=== PATIENT | female | born 1970 | race Caucasian/White ===

== ENCOUNTER 2016-08-07 15:28 | Emergency (ER) | payer BC ==
[~2016-08-07 15:28] MED LIST: HYDR-79 PO
[2016-08-07 16:05] VITALS: BP 130/83
[2016-08-07 16:17] LABS: INFLUENZA A PATIENT NEGATIVE (NEGATIVE); INFLUENZA B PATIENT NEGATIVE (NEGATIVE)
--- NOTE | 2016-08-07 16:42 | ED.ADGEN ---
Past History Past Medical History: No Pertinent History Past Surgical History: No Surgical History Alcohol Use: None Drug Use: None Adult General Chief Complaint Chief Complaint Multiple medical complaints HPI HPI Patient is a 46-year-old female who presents 4 days post right lower posterior molar extraction with generalized malaise, weakness, nausea and intermittent hot flashes. Patient also reports sore throat. She denies fever chills sweats. She denies increased dental pain or swelling. Patient's currently prescribed Cleocin which she is taking. Patient discontinued hydrocodone after one day due to lack of pain. No other acute symptoms. Review of Systems Review of Systems Review of symptoms as per history of present illness. All other review symptoms are negative. Allergies Allergies Allergies Coded Allergies Type Severity Reaction Last Updated Verified Sulfa (Sulfonamide Antibiotics) Allergy Unknown 02/28/16 Yes Physical Exam Physical Exam Constitutional: Well developed, well nourished, no acute distress, non-toxic appearance. HENT: Normocephalic, atraumatic, bilateral external ears normal, oropharynx moist, right lower posterior MTP third molar socket with minimal. No swelling redness appreciated. Eyes: PERRLA, EOMI, conjunctiva normal. Neck: Normal range of motion, no tenderness, supple, no stridor. Cardiovascular:Heart rate regular rhythm, no murmur. Lungs & Thorax: Bilateral breath sounds clear to auscultation. Abdomen: Bowel sounds normal, soft, no tenderness. Skin: Warm, dry, no erythema, no rash. Back: No tenderness, no CVA tenderness. Extremities: No tenderness. Neurologic: Alert and oriented X 3, normal motor function, normal sensory function, no focal deficits noted. Psychologic: Affect normal, judgement normal, mood normal. Current Patient Data Vital Signs Vital Signs Date Time Temp Pulse Resp B/P Pulse Ox O2 Delivery O2 Flow Rate FiO2 08/07/16 16:05 97.5 75 16 98 Room Air Lab Results Laboratory Tests Test 08/07/16 15:45 Influenza Type A (Rapid) Negative (NEGATIVE) Influenza Type B (Rapid) Negative (NEGATIVE) EKG EKG [] Radiology/Procedures Radiology/Procedures [] Impressions: Nondescript symptoms with normal vital signs Course & Med Decision Making Course & Med Decision Making Pertinent Labs and Imaging studies reviewed. (See chart for details) [Discussed with patient possible viral syndrome, versus drug reaction, versus premenopausal symptoms. Went supportive care with PCP follow-up. Patient left prior to discharge instructions and prescription.] Final Impression Final Impression [1. malaise and fatigue 2. nausea] Problems: Toni Disclaimer Toni Disclaimer This electronic medical record was generated, in whole or in part, using a voice recognition dictation system. LARS GARCIA DO Aug 07, 2016 16:41
== END 2016-08-07 16:41 | disposition home or self-care (01) ==
LOC: ER 15:28
DX: R53.81 Other malaise (principal); R53.83 Other fatigue; R11.0 Nausea; J02.9 Acute pharyngitis, unspecified; R53.1 Weakness; Z88.2 Allergy status to sulfonamides
CPT/HCPCS: 87804; 99284

== ENCOUNTER → 2016-08-27 | Outpatient (CLI) | payer BC ==
[2016-08-07 16:05] VITALS: BP 130/83
== END | disposition home or self-care (01) ==
LOC: MAMMO 07:58
PROVIDERS: ATTEND General Practice
DX: Z12.31 Encounter for screening mammogram for malignant neoplasm of breast (principal); L03.317 Cellulitis of buttock
CPT/HCPCS: G0202; 77067

== ENCOUNTER 2016-10-06 20:01 | Emergency (ER) | payer BC ==
[~2016-10-06] VITALS: Ht 167.6 cm; Wt 65.8 kg
[2016-10-06 20:10] VITALS: BP 113/79
--- NOTE | 2016-10-06 20:24 | PHYS DOC ---
Past History Past Medical History: No Pertinent History Past Surgical History: No Surgical History Smoking: Cigarettes Alcohol Use: None Drug Use: None, Methamphetamine Adult General Chief Complaint Chief Complaint: ABSCESS HPI HPI Patient is a 46 year old female who presents with redness and swelling to left arm. On Tuesday she "shot up meth in that arm and I missed." She developed increasing pain and swelling to the area. No streaking up the arm. No fever. No difficulty moving the arm or hand. Review of Systems Review of Systems Constitutional: Denies fever or chills Musculoskeletal: Denies back pain or joint pain. No loss of ROM. Integument: swelling and redness localized to left forearm. Neurologic: Denies headache, focal weakness or sensory changes Allergies Allergies Allergies Coded Allergies Type Severity Reaction Last Updated Verified Sulfa (Sulfonamide Antibiotics) Allergy Unknown 02/28/16 Yes Physical Exam Physical Exam Constitutional: Thin female in poor nutrition status HENT: Normocephalic, atraumatic, bilateral external ears normal, oropharynx moist, no oral exudates, nose normal. Cardiovascular:Heart rate regular rhythm, no murmur Lungs & Thorax: Bilateral breath sounds clear to auscultation Skin: left forearm with redness Extremities: Left forearm: , no cyanosis, ROM intact, no edema. No compartment syndrome; forearm soft. NVI distally. No lymphangitis. Localized area (4 cm) of redness with swelling on volar aspect of mid forearm. Non fluctuant. Neurologic: Alert and oriented X 3, normal motor function, normal sensory function, no focal deficits noted. Psychologic: Affect normal, judgement normal, mood normal. Current Patient Data Vital Signs BP 113/79, P 89, T 97.6, sat 99% Radiology/Procedures Radiology/Procedures Xray with soft tissue swelling but no gas by my interpretation Course & Med Decision Making Course & Med Decision Making Pertinent Labs and Imaging studies reviewed. (See chart for details) Xray ordered to r/o retained foreign body or subcut gas. Rocephin IM here along with Clindamycin and doxycyline po. She will need to continue both po meds starting in the am. Warm compresses. Not ready to I&D yet but informed patient that she may very well worsen and require hospitalization and or debridement. She needs to monitor this closely; hoh it with a sharpie to monitor for spread. Toni Disclaestiven Muñoz Disclaimer This chart was dictated in whole or in part using Voice Recognition software in a busy, high-work load, and often noisy Emergency Department environment. It may contain unintended and wholly unrecognized errors or omissions. Departure Departure: Impression: Primary Impression: Cellulitis of forearm, left Additional Impressions: IVDU (intravenous drug user) Methamphetamine use Disposition: HOME, SELF-CARE Condition: STABLE Referrals: ITALIA GREEN DO (PCP) Scripts Tramadol Hcl/Acetaminophen (TRAMADOL-ACETAMINOPHN 37.5-325) 1 Each Tablet 1 TAB PO Q4-6HRS, #20 TAB Prov: BRIANA FINN MD 10/06/16 Doxycycline Hyclate (DOXYCYCLINE HYCLATE) 100 Mg Tablet.dr 1 TAB PO BID, #14 TAB Prov: BRIANA FINN MD 10/06/16 Clindamycin Hcl (CLINDAMYCIN HCL) 300 Mg Capsule 1 CAP PO TID, #21 CAP Prov: BRIANA FINN MD 10/06/16 Problem Qualifiers BRIANA FINN MD October 06, 2016 20:24
[2016-10-06] MEDS ORDERED: DOXY100T9 PO (20:29)
[2016-10-06] MEDS ORDERED: CLIN300C8 PO (20:29)
[2016-10-06] MEDS ORDERED: TRAM1TAB4 PO (20:32)
[2016-10-06] MEDS ORDERED: DOXYCYCLINE HYCLATE 100 MG TABLET PO ONE (20:45)
[2016-10-06] MEDS ORDERED: cefTRIAXone IM 1 GM VIAL IM ONE (20:45)
[2016-10-06] MEDS ORDERED: CLINDAMYCIN HCL 150 MG CAPSULE PO ONE (20:45)
[2016-10-06] MEDS ORDERED: DIPHTH,PERTUSS(ACELL),TET TOX 0.5 ML DISP.SYRIN. VAX IM ONE (21:00)
--- NOTE | 2016-10-07 07:36 | RAD ---
Left forearm, 2 views, 10/06/2016: History: Arm swelling. Rule out foreign body No fracture or destructive bony lesion is seen. There is streaky edema in the soft tissues of the proximal forearm. No radiopaque foreign body is evident. IMPRESSION: No significant bony abnormality is detected.
== END 2016-10-06 21:24 | disposition home or self-care (01) ==
LOC: ER 20:01
DX: L03.114 Cellulitis of left upper limb (principal); F15.10 Other stimulant abuse, uncomplicated; F19.10 Other psychoactive substance abuse, uncomplicated; F17.210 Nicotine dependence, cigarettes, uncomplicated; Z88.2 Allergy status to sulfonamides
CPT/HCPCS: 73090; 90471; 90715; 96372; 99284; J0696

== ENCOUNTER 2018-08-25 00:38 | Emergency (ER) | payer BC, OTHER ==
[~2018-08-25] VITALS: Ht 167.6 cm; Wt 76.2 kg
[~2018-08-25 00:38] MED LIST changes: +CLIN300C8 PO; +DOXY100T9 PO; +HYDR-1179 PO; -HYDR-79 PO; +TRAM1TAB4 PO
[2018-08-25] MEDS ORDERED: IV NORMAL SALINE 1,000ML 1,000 ML IV SCH (01:15)
[2018-08-25] MEDS ORDERED: ONDANSETRON PF 4 MG/2 ML VIAL. IV ONE (01:30)
[2018-08-25 02:04] LABS: BARBITURATES NEG (NEG); BENZODIAZEPINES NEG (NEG); CANNABINOIDS NEG (NEG); COCAINE NEG (NEG); METHADONE NEG (NEG); OPIATES NEG (NEG); PHENCYCLIDINE NEG (NEG)
[2018-08-25 02:05] LABS: BILIRUBIN,URINE NEG (NEG); CLARITY,URINE CLEAR; COLOR,URINE YELLOW; GLUCOSE,URINE NEG (NEG); NITRITE,URINE NEG (NEG); UROBILINOGEN,URINE 0.2 mg/dL (0.2 mg/dL)
[2018-08-25 02:06] LABS: AMPHETAMINE/METHAMPHETAMINE POS (NEG); BACTERIA,URINE 0 /HPF (0-FEW); RBC,URINE RARE /HPF (0-2); SQUAMOUS EPITHELIAL CELL,UR FEW /LPF; WBC,URINE OCC /HPF (0-4)
[2018-08-25 02:21] LABS: BASO # 0.1 x10^3/uL (0.0-0.2); BASO % 1 % (0-3); EOS # 0.1 x10^3/uL (0.0-0.7); EOS % 1 % (0-3); HEMATOCRIT 37.9 % (36.0-47.0); HEMOGLOBIN 12.8 g/dL (12.0-15.5); LYMPH # 1.7 x10^3/uL (1.0-4.8); LYMPH % 31 % (24-48); MEAN CORPUSCULAR HEMOGLOBIN 31 pg (25-35); MEAN CORPUSCULAR HGB CONC 34 g/dL (31-37); MEAN CORPUSCULAR VOLUME 93 fL (79-100); MONO # 0.5 x10^3/uL (0.0-1.1); MONO % 9 % (0-9); NEUT # 3.3 x10^3uL (1.8-7.7); NEUT % 59 % (31-73); PLATELET COUNT 245 x10^3/uL (140-400); RED BLOOD COUNT 4.09 x10^6/uL (3.50-5.40); RED CELL DISTRIBUTION WIDTH 13.1 % (11.5-14.5); WHITE BLOOD COUNT 5.6 x10^3/uL (4.0-11.0)
[2018-08-25 02:32] LABS: ALBUMIN 3.3 g/dL (3.4-5.0); ALBUMIN/GLOBULIN RATIO 0.9 (1.0-1.7); CALCIUM 8.5 mg/dL (8.5-10.1); CREATININE 0.7 mg/dL (0.6-1.0); GFR 89.3; TOTAL BILIRUBIN 0.3 mg/dL (0.2-1.0)
[2018-08-25 02:35] LABS: POTASSIUM 4.3 mmol/L (3.5-5.1)
[2018-08-25 03:03] VITALS: BP 106/65
[2018-08-25] MEDS ORDERED: ONDA4TAB7 PO (03:13)
--- NOTE | 2018-08-25 03:13 | PHYS DOC ---
Past History Past Medical History: Anxiety, Hypothyroid, Other Past Surgical History: Tubal ligation Smoking: Cigarettes Alcohol Use: Occasionally Drug Use: Benzodiazepine, Methamphetamine Adult General Chief Complaint Chief Complaint: DRUG ABUSE HPI HPI Patient is a 48-year-old female who presents with report that she was just diagnosed with pancreatitis this morning over at [facility]. Patient states that they had wanted to admit her there but she left because [facility] was not an in network facility. Patient's case was discussed with staff at [facility] and patient had reportedly stated that she was going to go out and talk to a friend but then eloped from hospital. Patient does admit to methamphetamine abuse. She states that she is not sure why she develops the pancreatitis. She rates pain as being moderate and admits to nausea and vomiting. Review of Systems Review of Systems Constitutional: Denies fever or chills [] Respiratory: Denies cough or shortness of breath [] Cardiovascular: No additional information not addressed in HPI [] GI: Admits to abdominal pain with nausea and vomiting. Denies diarrhea [] Integument: Denies rash or skin lesions [] Neurologic: Denies headache, focal weakness or sensory changes [] All other systems were reviewed and found to be within normal limits, except as documented in this note. Current Medications Current Medications Current Medications Medications (Trade) Dose Ordered Sig/Sials Start Time Stop Time Status Last Admin Dose Admin Ondansetron HCl (Zofran) 4 mg 1X ONCE 08/25/18 01:30 08/25/18 01:31 DC 08/25/18 02:07 4 MG Sodium Chloride 1,000 ml @ 1,000 mls/hr Q1H 08/25/18 01:15 08/25/18 02:14 DC 08/25/18 02:07 1,000 MLS/HR Allergies Allergies Allergies Coded Allergies Type Severity Reaction Last Updated Verified Sulfa (Sulfonamide Antibiotics) Allergy Unknown 02/28/16 Yes Physical Exam Physical Exam Constitutional: Well developed, well nourished, no acute distress, non-toxic appearance. [] HENT: Normocephalic, atraumatic, bilateral external ears normal, oropharynx moist, no oral exudates, nose normal. [] Eyes: PERRLA, EOMI, conjunctiva normal, no discharge. [] Neck: Normal range of motion, no tenderness, supple, no stridor. [] Cardiovascular: Mildly tachycardic rate with regular rhythm[] Lungs & Thorax: Bilateral breath sounds clear to auscultation [] Abdomen: Bowel sounds normal, soft, with epigastric tenderness. [] Skin: Warm, dry, no erythema, no rash. [] Extremities: No tenderness, no cyanosis, no clubbing, ROM intact, no edema. [] Neurologic: Alert and oriented X 3, no focal deficits noted. [] Psychologic: Very anxious on exam. [] Current Patient Data Vital Signs Vital Signs Date Time Temp Pulse Resp B/P (MAP) Pulse Ox O2 Delivery O2 Flow Rate FiO2 08/25/18 00:38 98.4 73 20 100 Room Air Lab Results Laboratory Tests Test 08/25/18 01:27 08/25/18 01:57 Urine Collection Type Unknown Urine Color Yellow Urine Clarity Clear Urine pH 7.0 Urine Specific [place] 1.010 Urine Protein Neg (NEG-TRACE) Urine Glucose (UA) Neg mg/dL (NEG) Urine Ketones (Stick) Neg mg/dL (NEG) Urine Blood Neg (NEG) Urine Nitrite Neg (NEG) Urine Bilirubin Neg (NEG) Urine Urobilinogen Dipstick 0.2 mg/dL (0.2 mg/dL) Urine Leukocyte Esterase Neg (NEG) Urine RBC Rare /HPF (0-2) Urine WBC Occ /HPF (0-4) Urine Squamous Epithelial Cells Few /LPF Urine Bacteria 0 /HPF (0-FEW) Urine Opiates Screen Neg (NEG) Urine Methadone Screen Neg (NEG) Urine Barbiturates Neg (NEG) Urine Phencyclidine Screen Neg (NEG) Urine Amphetamine/Methamphetamine Pos (NEG) Urine Benzodiazepines Screen Neg (NEG) Urine Cocaine Screen Neg (NEG) Urine Cannabinoids Screen Neg (NEG) Urine Ethyl Alcohol Neg (NEG) White Blood Count 5.6 x10^3/uL (4.0-11.0) Red Blood Count 4.09 x10^6/uL (3.50-5.40) Hemoglobin 12.8 g/dL (12.0-15.5) Hematocrit 37.9 % (36.0-47.0) Mean Corpuscular Volume 93 fL (79-100) Mean Corpuscular Hemoglobin 31 pg (25-35) Mean Corpuscular Hemoglobin Concent 34 g/dL (31-37) Red Cell Distribution Width 13.1 % (11.5-14.5) Platelet Count 245 x10^3/uL (140-400) Neutrophils (%) (Auto) 59 % (31-73) Lymphocytes (%) (Auto) 31 % (24-48) Monocytes (%) (Auto) 9 % (0-9) Eosinophils (%) (Auto) 1 % (0-3) Basophils (%) (Auto) 1 % (0-3) Neutrophils # (Auto) 3.3 x10^3uL (1.8-7.7) Lymphocytes # (Auto) 1.7 x10^3/uL (1.0-4.8) Monocytes # (Auto) 0.5 x10^3/uL (0.0-1.1) Eosinophils # (Auto) 0.1 x10^3/uL (0.0-0.7) Basophils # (Auto) 0.1 x10^3/uL (0.0-0.2) Sodium Level 141 mmol/L (136-145) Potassium Level 4.3 mmol/L (3.5-5.1) Chloride Level 106 mmol/L (98-107) Carbon Dioxide Level 27 mmol/L (21-32) Anion Gap 8 (6-14) Blood Urea Nitrogen 16 mg/dL (7-20) Creatinine 0.7 mg/dL (0.6-1.0) Estimated GFR (Cockcroft-Gault) 89.3 BUN/Creatinine Ratio 23 (6-20) H Glucose Level 98 mg/dL (70-99) Calcium Level 8.5 mg/dL (8.5-10.1) Total Bilirubin 0.3 mg/dL (0.2-1.0) Aspartate Amino Transferase (AST) 29 U/L (15-37) Alanine Aminotransferase (ALT) 26 U/L (14-59) Alkaline Phosphatase 93 U/L (46-116) Total Protein 7.0 g/dL (6.4-8.2) Albumin 3.3 g/dL (3.4-5.0) L Albumin/Globulin Ratio 0.9 (1.0-1.7) L Lipase 159 U/L (73-393) Ethyl Alcohol Level < 10 mg/dL (0-10) EKG EKG [] Radiology/Procedures Radiology/Procedures [] Course & Med Decision Making Course & Med Decision Making Pertinent Labs and Imaging studies reviewed. (See chart for details) Medical records from [facility] were reviewed. A workup was completed at this facility and upon reviewing workup, patient's lipase has returned to normal. Patient does report to some improvement in symptoms after IV fluids as well as nausea medication. Dragon Disclaimer Dragon Disclaimer This electronic medical record was generated, in whole or in part, using a voice recognition dictation system. Departure Departure: Impression: Primary Impression: Abdominal pain Additional Impression: Methamphetamine abuse Disposition: HOME, SELF-CARE Condition: STABLE Referrals: ITALIA GREEN DO (PCP) Patient Instructions: Abdominal Pain, Methamphetamine Abuse, Complications Scripts Ondansetron Hcl (ZOFRAN) 4 Mg Tablet 4 MG PO Q8HRS PRN for NAUSEA/VOMITING, #12 TAB Prov: REGINA ALDRIDGE Jr., DO 08/25/18 Problem Qualifiers Primary Impression: Abdominal pain Abdominal location: unspecified location Qualified Codes: R10.9 - Unspecified abdominal pain REGINA ALDRIDGE Jr. DO Aug 25, 2018 03:13
== END 2018-08-25 03:23 | disposition home or self-care (01) ==
LOC: ER 00:38
DX: R10.13 Epigastric pain (principal); F15.10 Other stimulant abuse, uncomplicated; R11.2 Nausea with vomiting, unspecified; F41.9 Anxiety disorder, unspecified; E03.9 Hypothyroidism, unspecified; F17.210 Nicotine dependence, cigarettes, uncomplicated; F19.10 Other psychoactive substance abuse, uncomplicated; Z98.51 Tubal ligation status; Z88.2 Allergy status to sulfonamides
CPT/HCPCS: 36415; 80053; 80307; 81001; 83690; 85025; 96361; 96374; 99283; G0480; J2405; J7030

== ENCOUNTER → 2018-12-08 | Outpatient (CLI) | payer OTHER ==
[~2018-12-08] MED LIST changes: +ONDA4TAB7 PO
--- NOTE | 2018-12-08 14:35 | RAD ---
RENAL COMPLETE BILATERAL History: Chronic cystitis Comparison: None. Procedure: Transabdominal ultrasound images are obtained of the kidneys and bladder. Findings: The kidneys demonstrate normal cortical echotexture. Corticomedullary differentiation is preserved. There is no hydronephrosis. The right kidney measures 10.7 x 5.8 x 4.8 cm. The left kidney measures 11.6 x 4.9 x 4.1 cm. The urinary bladder appears normal. Normal post void urinary bladder volume. Bilateral ureteral jets were identified. IMPRESSION: 1. Unremarkable renal ultrasound. Electronically signed by: Bruno Daly DO (12/08/2018 2:32 PM) [id number]
== END | disposition home or self-care (01) ==
LOC: US 12:52
PROVIDERS: ATTEND Urology
DX: N30.20 Other chronic cystitis without hematuria (principal)
CPT/HCPCS: 76770

== ENCOUNTER 2020-08-07 11:32 | Emergency (ER) | payer MEDICAID, OTHER ==
[~2020-08-07] VITALS: Ht 170.2 cm; Wt 72.0 kg
[~2020-08-07 11:32] MED LIST changes: -CLIN300C8 PO; +CLIN300C9 PO; +DOXY-96 PO; -DOXY100T9 PO
[2020-08-07 11:50] VITALS: BP 110/41
--- NOTE | 2020-08-07 12:09 | PHYS DOC ---
Past History Past Medical History: Anxiety, Hypothyroid, Other Past Surgical History: Tubal ligation Smoking: Cigarettes Alcohol Use: Occasionally Drug Use: Benzodiazepine, Methamphetamine General Adult EDM: Chief Complaint: EARACHE/EAR PAIN HPI: HPI: Patient is a 50-year-old female who presents with right ear pain. Patient states that she was seen at [facility] a week ago for a cold and was told to use Debrox in her ear to loosen the wax and placed on an antibiotic. Patient states that she is still having pain in her right ear and ringing in her ears. Patient den ies dizziness, fever. Patient has history of bronchitis and asthma. Review of Systems: Review of Systems: Constitutional: Denies fever or chills Eyes: Denies change in visual acuity HENT: Reports nasal congestion denies sore throat. Right ear pain. Respiratory: Denies cough or shortness of breath Cardiovascular: Denies chest pain or edema GI: Denies abdominal pain, nausea, vomiting, bloody stools or diarrhea : Denies dysuria Musculoskeletal: Denies back pain or joint pain Integument: Denies rash Neurologic: Denies headache, focal weakness or sensory changes Endocrine: Denies polyuria or polydipsia Lymphatic: Denies swollen glands Psychiatric: Denies depression or anxiety Allergies: Allergies: Allergies Coded Allergies Type Severity Reaction Last Updated Verified Sulfa (Sulfonamide Antibiotics) Allergy Unknown 02/28/16 Yes Physical Exam: PE: Constitutional: Well developed, well nourished, no acute distress, non-toxic appearance. [] HENT: Normocephalic, atraumatic, bilateral external ears normal, Cerumen right ear Eyes: PERRLA, EOMI, conjunctiva normal, no discharge. [] Neck: Normal range of motion, no tenderness, supple, no stridor. [] Cardiovascular:Heart rate regular rhythm, no murmur [] Lungs & Thorax: Bilateral breath sounds clear to auscultation [] Abdomen: Bowel sounds normal, soft, no tenderness, no masses, no pulsatile masses. [] Skin: Warm, dry, no erythema, no rash. [] Back: No tenderness, no CVA tenderness. [] Extremities: No tenderness, no cyanosis, no clubbing, ROM intact, no edema. [] Neurologic: Alert and oriented X 3, normal motor function, normal sensory function, no focal deficits noted. [] Psychologic: Affect normal, judgement normal, mood normal. [] EKG: EKG: [] Radiology/Procedures: Radiology/Procedures: Right ear irrigation. [] Heart Score: C/O Chest Pain: No Risk Factors: Risk Factors: DM, Current or recent (<one month) smoker, HTN, HLP, family history of CAD, obesity. Risk Scores: Score 0 - 3: 2.5% MACE over next 6 weeks - Discharge Home Score 4 - 6: 20.3% MACE over next 6 weeks - Admit for Clinical Observation Score 7 - 10: 72.7% MACE over next 6 weeks - Early Invasive Strategies Course & Med Decision Making: Course & Med Decision Making Pertinent Labs and Imaging studies reviewed. (See chart for details) []Cerumen impaction within right ear canal. decreased in hearing, fullness, pain. Denies dizziness, tinnitus. Irrigating right and left ear to remove cerumen. Patient has been using medication to soften wax. Patient reports that her ear feels better after irrigation. Able to visualize tm after irrigation. Patient to continue taking antibiotic she was prescribed and using wax softener. To follow-up with PCP with further concerns. Patient can return to emergency room with worsening symptoms. Dragon Disclaimer: Dragon Disclaimer: This electronic medical record was generated, in whole or in part, using a voice recognition dictation system. Departure Departure: Impression: Primary Impression: Cerumen impaction Qualified Codes: H61.21 - Impacted cerumen, right ear Disposition: 01 DC HOME SELF CARE/HOMELESS Condition: STABLE Referrals: NINFA BANUELOS APRN (PCP) Patient Instructions: Cerumen Impaction Additional Instructions: You were seen in the emergency room for right ear pain due to wax impaction. Your ear was irrigated while in the emergency room. Continue taking the antibiotic you are prescribed and using the wax softener to loosen up the wax buildup. If you continue to have issues follow-up with your PCP or you can return to the emergency room with worsening symptoms or concerns. EMERGENCY DEPARTMENT GENERAL DISCHARGE INSTRUCTIONS Thank you for coming to [facility] (ED) today and trusting us with you care. We trust that you had a positivie experience in our Emergency Department. If you wish to speak to the department management, you may call the director at [phone]. YOUR FOLLOW UP INSTRUCTIONS ARE FOLLOWS: 1. Do you have a private Doctor? If you do not have a private doctor, please ask for a resource list of physicians or clinics that may be able to assist you with follow up care. 2. The Emergency Physician has interpreted your x-rays. The X-Ray specialist will also review them. If there is a change in the findings, you will be notified in 48 hours when at all possible. 3. A lab test or culture has been done, your results will be reviewed and you will be notified if you need a change in treatment. ADDITIONAL INSTRUCTIONS AND INFORMATION: 1. Your care today has been supervised by a physician who is specially trained in emergency care. Many problems require more than one evaluation for a complete diagnosis and treatment. We recommend that you schedule your follow up appointment as recommended to ensure complete treatment of you illness or injury. If you are unable to obtain follow up care and continue to have a problem, or if your condition worsens, we recommend that you return to the ED. 2. We are not able to safely determine your condition over the phone nor are we able to give sound medical advice over the phone. For these safety reasons, if you call for medical advice we will ask you to come to the ED for further evaluation. 3. If you have any questions regarding these discharge instructions please call the ED at [phone]. SAFETY INFORMATION: In the interest of safety, wellness, and injury prevention; we encourage you to wear your sealbelt, if you smoke; quite smoking, and we encourage family to use a protective helmet for bicycling and other sporting events that present an increased risk for head injury. IF YOUR SYMPTOMS WORSEN OR NEW SYMPTOMS DEVELOP, OR YOU HAVE CONCERNS ABOUT YOUR CONDITION; OR IF YOUR CONDITION WORSENS WHILE YOU ARE WAITING FOR YOUR FOLLOW UP APPOINTMENT; EITHER CONTACT YOUR PRIMARY CARE DOCTOR, THE PHYSICIAN WHOSE NAME AND NUMBER YOU WERE GIVEN, OR RETURN TO THE ED IMMEDIATELY. MAU JACKSON APRN Aug 07, 2020 12:09
[2020-08-07] MEDS: DOCUSATE SODIUM 100 MG CAPSULE PO ONE (12:22)
== END 2020-08-07 13:51 | disposition home or self-care (01) ==
LOC: ER 11:32
DX: H61.21 Impacted cerumen, right ear (principal); R09.81 Nasal congestion; F41.9 Anxiety disorder, unspecified; E03.9 Hypothyroidism, unspecified; F12.90 Cannabis use, unspecified, uncomplicated; F19.90 Other psychoactive substance use, unspecified, uncomplicated; F17.210 Nicotine dependence, cigarettes, uncomplicated; Z98.51 Tubal ligation status
CPT/HCPCS: 99282

== ENCOUNTER → 2020-08-28 | Outpatient (CLI) | payer MEDICAID ==
[2020-08-07 11:50] VITALS: BP 110/41
--- NOTE | 2020-08-28 11:47 | RAD ---
Complete abdominal ultrasound 08/28/2020 8:51 AM Clinical History: Reason: UPPER ABD PAIN / Spl. Instructions: / History: Technique: Ultrasound examination of the abdomen was performed, and multiple static images were subm itted for review. Comparison: None Findings: Visualized pancreas is unremarkable. Visualized aorta and IVC are unremarkable. The liver is mildly e nlarged measuring 18.3 cm longitudinally. Hepatic echotexture is normal. Portal vein appears be gross ly patent. No focal hepatic lesions are seen. The gallbladder is normal in appearance without evidenc e of wall thickening, stones, or sludge. The common bile duct is nondilated at 2 mm. Right kidney is normal in appearance measuring 10.5 cm in length. Spleen is normal in size measuring 10.5 cm longitud inally. Left kidney is unremarkable in appearance measuring 11.1 cm in length. IMPRESSION: Mild hepatomegaly. Otherwise normal sonographic appearance of the abdomen. Electronically signed by: Bhupendra Velazquez MD (08/28/2020 11:44 AM) [id number]
--- NOTE | 2020-08-28 16:27 | RAD ---
Gastric Emptying Study Indication: Abdominal pain and nausea x2 months Procedure: Anterior and posterior projection static images are obtained over the stomach following or al administration of 2 mCi of 99 M technetium sulfur colloid in a solid meal. Time points include an immediate baseline, and 1, 2, 3, and 4 hours post ingestion. Findings: There is progressive emptying of the stomach on sequential images. Percentage retention at one hour is 33% (normal 34.8-91%). Two hours 18% (normal 2.7-60%). Three hours 7% (normal 0.5-28%). Four hours 1% (normal 0-10%). The calculated T1/2 of emptying is 40 minutes. 45-90 minutes is considered normal. IMPRESSION: Normal 4 hour protocol gastric emptying study. Electronically signed by: Freddie Earl MD (08/28/2020 4:24 PM) [id number]
== END ==
LOC: US 08:40
PROVIDERS: ATTEND Internal Medicine Gastroenterology
DX: R16.0 Hepatomegaly, not elsewhere classified (principal)
CPT/HCPCS: 76700; 78264; A9541

== ENCOUNTER 2021-02-18 19:21 | Emergency (ER) | payer MEDICAID ==
[~2021-02-18] VITALS: Ht 170.2 cm; Wt 70.6 kg
[2021-02-18 19:21] VITALS: BP 130/72
[2021-02-18] MEDS: LIDOCAINE 2% 20 ML VIAL. IJ ONE (20:00)
--- NOTE | 2021-02-18 20:41 | RAD ---
Exam: Right finger 3 views INDICATION: Crush injury TECHNIQUE: Frontal, lateral and oblique views of the Comparisons: None FINDINGS: Bone mineralization is normal. No acute or healed fractures. Soft tissues are unremarkable. Joint spa sergey are well-maintained. IMPRESSION: No acute osseous abnormality Electronically signed by: Irene Rosario MD (02/18/2021 8:38 PM) [id number]
--- NOTE | 2021-02-18 21:23 | PHYS DOC ---
Past History Past Medical History: Anxiety, Hypothyroid, Other (PARKER HASTINGS APRN) Past Surgical History: No Surgical History, Tubal ligation (PARKER HASTINGS APRN) Smoking: Cigarettes Alcohol Use: Occasionally Drug Use: Benzodiazepine, Methamphetamine (PARKER HASTINGS APRN) Adult General Chief Complaint Chief Complaint: LACERATION/AVULSION HPI HPI Patient is a 50-year-old female presents emergency department concerning right middle fingertip laceration after started in the back of a door just prior to arrival. Patient reports her last tetanus immunization was less than 5 years ago, states she did not take any pain medication prior to arrival to the ER. Patient reports she does came straight to the emergency department. Patient denies other physical concerns or physical complaints. (PARKER HASTINGS APRN) Review of Systems Review of Systems 14 body systems of review of systems have been reviewed. See HPI for pertinent positives and negative responses, otherwise all other systems are negative, nonpertinent or noncontributory. Constitutional: Negative except as outlined in HPI above. Skin: Negative except as outlined in HPI above. Eyes: Negative except as outlined in HPI above. HENT: Negative except as outlined in HPI above. Respiratory: Negative except as outlined in HPI above. Cardiovascular: Negative except as outlined in HPI above. GI: Negative except as outlined in HPI above. : Negative except as outlined in HPI above. Musculoskeletal: Negative except as outlined in HPI above. Integument: Negative except as outlined in HPI above. Neurologic: Negative except as outlined in HPI above. Endocrine: Negative except as outlined in HPI above. Lymphatic: Negative except as outlined in HPI above. Psychiatric: Negative except as outlined in HPI above. (PARKER HASTINGS APRN) Current Medications Current Medications Current Medications Medications (Trade) Dose Ordered Sig/Silas Start Time Stop Time Status Last Admin Dose Admin Lidocaine HCl (Lidocaine 2%) 20 ml 1X ONCE 02/18/21 20:00 02/18/21 20:01 DC 02/18/21 20:00 20 ML (PARKER HASTINGS APRN) Allergies Allergies Allergies Coded Allergies Type Severity Reaction Last Updated Verified Sulfa (Sulfonamide Antibiotics) Allergy Unknown 08/07/20 Yes (PARKER HASTINGS APRN) Physical Exam Physical Exam Constitutional: Well developed, well nourished, no acute distress, non-toxic appearance. 50-year-old female in no apparent distress. HENT: Normocephalic, atraumatic. Eyes: Conjunctiva normal, no discharge. Neck: Normal range of motion, no stridor. Cardiovascular: No cyanosis appreciated, distal cap refill less than 2 seconds. Lungs & Thorax: Patient is in no respiratory distress, no audible adventitious lung sounds appreciated. Abdomen: Nontender, no abnormalities noted. Skin: Warm, dry, no erythema, no rash. Back: No tenderness, no deformities. Extremities: No tenderness, no cyanosis, no clubbing, ROM intact, no edema. Except for right middle fingertip 1.6 cm C-shaped laceration, the nail is not involved. Distal cap refill less than 2 seconds. Limited passive range of motion related to pain. Neurologic: Alert and oriented X 3, normal motor function, normal sensory function, no focal deficits noted. Psychologic: Affect normal, judgement normal, mood normal. (PARKER HASTINGS APRN) Current Patient Data Vital Signs Vital Signs Date Time Temp Pulse Resp B/P (MAP) Pulse Ox O2 Delivery O2 Flow Rate FiO2 02/18/21 19:21 97.6 92 18 130/72 (91) 98 Room Air (PARKER HASTINGS APRN) EKG EKG [] (PARKER HASTINGS APRN) Radiology/Procedures Radiology/Procedures PATIENT: NORY PENA ACCOUNT: [id number] : 1970 LOCATION: ER AGE: 50 SEX: F EXAM STATUS: PRE ER ORD. PHYSICIAN: PARKER HASTINGS APRN REASON: Crush injury middle fingertip, pain PROCEDURE: FINGER(S) RIGHT Exam: Right finger 3 views INDICATION: Crush injury TECHNIQUE: Frontal, lateral and oblique views of the Comparisons: None FINDINGS: Bone mineralization is normal. No acute or healed fractures. Soft tissues are unremarkable. Joint spaces are well-maintained. IMPRESSION: No acute osseous abnormality Electronically signed by: Irene Rosario MD (02/18/2021 8:38 PM) [facility] (PARKER HASTINGS APRN) Heart Score C/O Chest Pain: No Risk Factors: Risk Factors: DM, Current or recent (<one month) smoker, HTN, HLP, family history of CAD, obesity. Risk Scores: Risk Factors: DM, Current or recent (<one month) smoker, HTN, HLP, family history of CAD, obesity. (PARKER HASTINGS APRN) Course & Med Decision Making Course & Med Decision Making Pertinent Labs and Imaging studies reviewed. (See chart for details) 50-year-old female, vital signs reviewed, presents to the emergency department concerning fingertip laceration after close of it in the microwave door. The patient's tetanus immunization up-to-date not indicated for today's visit. Will x-ray the fingertip. X-ray unremarkable, no acute fracture appreciated. See laceration repair note. Patient gave verbal understanding of discharge home instructions, laceration care, sutures out in 7 to 10 days, discussed with the patient all findings and diagnostic testing as well as the need to follow-up with their primary care provider for further evaluation and treatment or return to the ED if any new or worsening symptoms. Strict return precautions were also discussed at length, the patient voiced understanding and agreement with the discharge planning. The patient was nontoxic in appearance, in no apparent distress, and hemodynamically stable at the time of disposition. (PARKER HASTINGS APRN) Dragon Disclaimer Dragon Disclaimer This electronic medical record was generated, in whole or in part, using a voice recognition dictation system. (PARKER HASTINGS APRN) Laceration Repair Lac Repair Indication: Right middle fingertip laceration Time: 2100 Confirmed: Patient, procedure, side, and site correct. Consent: Patient, has given verbal consent. Description/repair Procedure: The patient was placed in the appropriate position and anesthesia around the laceration was achieved with 8 cc 2% lidocaine without epinephrine digital block. The area was then cleansed with Betadine solution then rinsed with copious amounts of normal saline. The laceration was closed with 5 interrupted sutures using 4-0 nylon. The wound area was then dressed with bacitracin and Band-Aid by ED nursing staff. Complexity: Single layer. Post procedure exam: Circulation, motor, sensory examination intact, bleeding controlled. Total repaired wound length: 1.6 cm. Other Items: No other items. The patient tolerated the procedure well. Complications: There were no complications. Performed by: Self, Parker Hastings, PASTING MACHINE OFFBEARER-C Supervision: Dr. Linda was available for consult for the critical aspects of the procedure including closure and post procedure exam. Total time: 15 minutes. (PARKER HASTINGS APRN) Departure Departure: Impression: Primary Impression: Laceration of finger of right hand Disposition: HOME / SELF CARE / HOMELESS Condition: GOOD Referrals: PCP,NO (PCP) Patient Instructions: Fingertip Laceration, Laceration Care, Adult Additional Instructions: You were seen in the emergency department today for a laceration to your right middle fingertip after closing it in the microwave door. An x-ray was performed and did not show any acute fracture. Your fingertip was repaired with 5 interrupted sutures that require removal in 7 to 10 days. Please follow-up with your primary care physician for suture removal. Please cleanse 2-3 times a day and apply antibiotic ointment with Band-Aid until sutures are removed. No washing dishes, no soaking your hands in water until the sutures are removed. You may take a shower as normal. You may take Tylenol and/or cona-gih-yolydkj Motrin for discomfort during the healing process. Thank you for visiting our Emergency Department. It was a pleasure taking care of you today in the emergency department and we appreciate you trusting us with your care. If any additional problems come up don't hesitate to return to visit us. Please follow up with your primary care provider so they can plan additional care if needed and know about the problem that you had. If symptoms worsen come back to the Emergency Department. Any concerning symptoms that start such as chest pain, shortness of air, weakness or numbness on one side of the body, running high fevers or any other concerning symptoms return to the ER. EMERGENCY DEPARTMENT GENERAL DISCHARGE INSTRUCTIONS Thank you for coming to [facility] (ED) today and trusting us with you care. We trust that you had a positivie experience in our Emergency Department. If you wish to speak to the department management, you may call the director at [phone]. YOUR FOLLOW UP INSTRUCTIONS ARE FOLLOWS: 1. Do you have a private Doctor? If you do not have a private doctor, please ask for a resource list of physicians or clinics that may be able to assist you with follow up care. 2. The Emergency Physician has interpreted your x-rays. The X-Ray specialist will also review them. If there is a change in the findings, you will be notified in 48 hours when at all possible. 3. A lab test or culture has been done, your results will be reviewed and you will be notified if you need a change in treatment. ADDITIONAL INSTRUCTIONS AND INFORMATION: 1. Your care today has been supervised by a physician who is specially trained in emergency care. Many problems require more than one evaluation for a complete diagnosis and treatment. We recommend that you schedule your follow up appointment as recommended to ensure complete treatment of you illness or injury. If you are unable to obtain follow up care and continue to have a problem, or if your condition worsens, we recommend that you return to the ED. 2. We are not able to safely determine your condition over the phone nor are we able to give sound medical advice over the phone. For these safety reasons, if you call for medical advice we will ask you to come to the ED for further evaluation. 3. If you have any questions regarding these discharge instructions please call the ED at [phone]. SAFETY INFORMATION: In the interest of safety, wellness, and injury prevention; we encourage you to wear your sealbelt, if you smoke; quite smoking, and we encourage family to use a protective helmet for bicycling and other sporting events that present an increased risk for head injury. IF YOUR SYMPTOMS WORSEN OR NEW SYMPTOMS DEVELOP, OR YOU HAVE CONCERNS ABOUT YOUR CONDITION; OR IF YOUR CONDITION WORSENS WHILE YOU ARE WAITING FOR YOUR FOLLOW UP APPOINTMENT; EITHER CONTACT YOUR PRIMARY CARE DOCTOR, THE PHYSICIAN WHOSE NAME AND NUMBER YOU WERE GIVEN, OR RETURN TO THE ED IMMEDIATELY. Attending Signature Attending Signature I have reviewed the PA/PASTING MACHINE OFFBEARER's note and plan of care. I was available for consultation as needed during the patient's visit in the emergency department. I agree with the clinical impression, plan, and disposition. (PARKER LINDA DO) Problem Qualifiers Primary Impression: Laceration of finger of right hand Encounter type: initial encounter Finger: middle finger Damage to nail status: without damage Foreign body presence: without foreign body Qualified Codes: S61.212A - Laceration without foreign body of right middle finger without damage to nail, initial encounter PARKER HASTINGS APRN Feb 18, 2021 21:22 PARKER LINDA DO Feb 19, 2021 00:40
[2021-02-18] MEDS: BACITRACIN ZINC TOPICAL OINT PACKET. TP ONE (21:30)
== END 2021-02-18 21:45 | disposition home or self-care (01) ==
LOC: ER 19:21
DX: S61.212A Laceration without foreign body of right middle finger without damage to nail, initial encounter (principal); E03.9 Hypothyroidism, unspecified; F17.210 Nicotine dependence, cigarettes, uncomplicated; Z88.2 Allergy status to sulfonamides; W26.8XXA Contact with other sharp object(s), not elsewhere classified, initial encounter; Y93.89 Activity, other specified; Y92.89 Other specified places as the place of occurrence of the external cause; Y99.8 Other external cause status
CPT/HCPCS: 12001; 73140; 99283; J2001

== ENCOUNTER 2021-05-15 06:16 | Emergency (ER) | payer MEDICAID ==
[~2021-05-15] VITALS: Ht 170.2 cm; Wt 70.6 kg
[~2021-05-15 06:16] MED LIST changes: +CLIN-95 PO; -CLIN300C9 PO
[2021-05-15 06:27] VITALS: BP 116/73
[2021-05-15 07:25] LABS: COLOR,URINE YELLOW
[2021-05-15 07:26] LABS: BACTERIA,URINE FEW /HPF (0-FEW); BILIRUBIN,URINE NEG (NEG); CLARITY,URINE CLOUDY; GLUCOSE,URINE NEG (NEG); NITRITE,URINE NEG (NEG); SQUAMOUS EPITHELIAL CELL,UR FEW /LPF; UROBILINOGEN,URINE 0.2 mg/dL (0.2 mg/dL); WBC,URINE TNTC /HPF (0-4)
[2021-05-15] MEDS ORDERED: NITR100C62 PO (07:42)
[2021-05-15] MEDS ORDERED: PHEN-318 PO (07:42)
--- NOTE | 2021-05-15 07:42 | PHYS DOC ---
Past History Past Medical History: Anxiety, Hypothyroid, Other Past Surgical History: No Surgical History, Tubal ligation Smoking: Cigarettes Alcohol Use: Occasionally Drug Use: Benzodiazepine, Methamphetamine General Adult EDM: Chief Complaint: PAIN ON URINATION HPI: HPI: Patient is a 51-year-old female coming in for burning with urination started 6 hours ago. Patient states she has urinary urgency and dysuria, denies any hematuria or vaginal problems. Patient says she was at work when the symptoms started. No systemic complaints. Review of Systems: Review of Systems: All other systems within normal limits except for as noted in the HPI Allergies: Allergies: Allergies Coded Allergies Type Severity Reaction Last Updated Verified Sulfa (Sulfonamide Antibiotics) Allergy Unknown 08/07/20 Yes Physical Exam: PE: Constitutional: Well developed, well nourished, no acute distress, non-toxic appearance. [] HENT: Normocephalic, atraumatic, bilateral external ears normal, nose normal. [] Eyes: PERRLA, conjunctiva normal, no discharge. [] Neck: No rigidity, supple, no stridor. [] Cardiovascular: Regular rate and rhythm, brisk cap refill [] Lungs & Thorax: Non labored symmetric respirations, no tachypnea or respiratory distress [] Abdomen: Soft, nondistended. Skin: Warm, dry, no erythema, no rash. [] Back: Unremarkable Extremities: No deformities, range of motion grossly intact, no lower extremity edema [] Neurologic: Alert and oriented X 3, no focal deficits noted. [] Psychologic: Affect normal, judgement normal, mood normal. [] Current Patient Data: Labs: Laboratory Tests Test 05/15/21 06:25 05/15/21 06:40 Urine Collection Type Unknown Urine Color Yellow Urine Clarity Cloudy Urine pH 5.5 Urine Specific [place] >=1.030 Urine Protein 100 mg/dl (NEG-TRACE) Urine Glucose (UA) Neg mg/dL (NEG) Urine Ketones (Stick) Neg mg/dL (NEG) Urine Blood Mod (NEG) Urine Nitrite Neg (NEG) Urine Bilirubin Neg (NEG) Urine Urobilinogen Dipstick 0.2 mg/dL (0.2 mg/dL) Urine Leukocyte Esterase Trace (NEG) Urine RBC 3-5 /HPF (0-2) Urine WBC Tntc /HPF (0-4) Urine Squamous Epithelial Cells Few /LPF Urine Bacteria Few /HPF (0-FEW) Urine Mucus Slight /LPF POC Urine HCG, Qualitative hcg negative (Negative) Vital Signs: Vital Signs Date Time Temp Pulse Resp B/P (MAP) Pulse Ox O2 Delivery O2 Flow Rate FiO2 05/15/21 06:27 97.7 93 18 116/73 (87) 97 Room Air EKG: EKG: [] Radiology/Procedures: Radiology/Procedures: [] Heart Score: C/O Chest Pain: No Risk Factors: Risk Factors: DM, Current or recent (<one month) smoker, HTN, HLP, family history of CAD, obesity. Risk Scores: Score 0 - 3: 2.5% MACE over next 6 weeks - Discharge Home Score 4 - 6: 20.3% MACE over next 6 weeks - Admit for Clinical Observation Score 7 - 10: 72.7% MACE over next 6 weeks - Early Invasive Strategies Course & Med Decision Making: Course & Med Decision Making Pertinent Labs and Imaging studies reviewed. (See chart for details) [] Toni Disclaimer: Toni Disclaimer: This electronic medical record was generated, in whole or in part, using a voice recognition dictation system. Departure Departure: Impression: Primary Impression: UTI (urinary tract infection) Disposition: HOME / SELF CARE / HOMELESS Condition: STABLE Referrals: NON,STAFF (PCP) Patient Instructions: Urinary Tract Infection Scripts Phenazopyridine Hcl (PYRIDIUM) 200 Mg Tablet 1 TAB PO TID for urinary discomfort for 3 Days, #9 TAB 0 Refills Prov: SHANT HALEY MD 05/15/21 Nitrofurantoin Monohyd/M-Cryst (MACROBID 100 MG CAPSULE) 100 Mg Capsule 1 CAP PO BID for antibiotic for 7 Days, #14 CAP 0 Refills Prov: SHANT HALEY MD 05/15/21 SHANT HALEY MD May 15, 2021 07:42
== END 2021-05-15 08:02 | disposition home or self-care (01) ==
LOC: ER 06:16
DX: N39.0 Urinary tract infection, site not specified (principal); Z88.2 Allergy status to sulfonamides
CPT/HCPCS: 81001; 81025; 87086; 99283-25

== ENCOUNTER 2021-07-27 17:04 | Emergency (ER) | payer MEDICAID ==
[~2021-07-27] VITALS: Ht 170.2 cm; Wt 73.0 kg
[~2021-07-27 17:04] MED LIST changes: +NITR100C62 PO; +PHEN-318 PO
[2021-07-27 17:22] VITALS: BP 120/78
--- NOTE | 2021-07-27 17:39 | PHYS DOC ---
Past History Past Medical History: Anxiety, Hypothyroid, Other Additional Past Medical Histor: Shingles Past Surgical History: No Surgical History, Tubal ligation Smoking: Cigarettes Alcohol Use: None Drug Use: Benzodiazepine, Methamphetamine General Adult EDM: Chief Complaint: MULTIPLE COMPLAINTS HPI: HPI: Patient is a 51-year-old female that presents today with right second finger pain and rash on left buttock. Patient states that she was wrestling with her boyfriend yesterday and she states she jammed her right hand index finger on the floor, she said since that time it has been swollen and painful. Patient also states that she has a rash on her left buttock area she was seen by a telehealth visit today by Dr. Natalie Penn who diagnosed her with shingles and gave her a prescription for an antiviral medication, patient is asking for a cream to help with this rash and I instructed her that the current treatment of choice for shingles is oral antiviral medications and the one that she was on they was the appropriate medication. Review of Systems: Review of Systems: Constitutional: Denies fever or chills Eyes: Denies change in visual acuity HENT: Denies nasal congestion or sore throat Respiratory: Denies cough or shortness of breath Cardiovascular: Denies chest pain or edema GI: Denies abdominal pain, nausea, vomiting, bloody stools or diarrhea : Denies dysuria Musculoskeletal: Right second finger pain Integument: Left buttock rash Neurologic: Denies headache, focal weakness or sensory changes Endocrine: Denies polyuria or polydipsia Lymphatic: Denies swollen glands Psychiatric: Denies depression or anxiety Allergies: Allergies: Allergies Coded Allergies Type Severity Reaction Last Updated Verified Sulfa (Sulfonamide Antibiotics) Allergy Unknown 07/27/21 Yes Physical Exam: PE: Constitutional: Well developed, well nourished, no acute distress, non-toxic appearance. [] HENT: Normocephalic, atraumatic, bilateral external ears normal, oropharynx moist, no oral exudates, nose normal. [] Eyes: PERRLA, EOMI, conjunctiva normal, no discharge. [] Neck: Normal range of motion, no tenderness, supple, no stridor. [] Cardiovascular:Heart rate regular rhythm, no murmur [] Lungs & Thorax: Bilateral breath sounds clear to auscultation [] Abdomen: Bowel sounds normal, soft, no tenderness, no masses, no pulsatile masses. [] Skin: Linear rash that is raised, warm, dry, no erythema, no rash. [] Back: No tenderness, no CVA tenderness. [] Extremities: right 2nd finger swollen, with limited ROM due to swelling and pain, cap refill < 2 sec, sensory intact at distal end of finger, no pain with palpation in 2nd metacarpal. radial pulse 2+ in right wrist. No tenderness, no cyanosis, no clubbing, ROM intact, no edema. [] Neurologic: Alert and oriented X 3, normal motor function, normal sensory function, no focal deficits noted. [] Psychologic: Affect normal, judgement normal, mood normal. [] EKG: EKG: [] Radiology/Procedures: Radiology/Procedures: REASON: pain in 2nd finger after jamming it PROCEDURE: HAND RIGHT 3V EXAM: 3 views right hand DATE: 07/27/2021 5:28 PM INDICATION: Reason: pain in 2nd finger after jamming it / Spl. Instructions: / History: . COMPARISON: No Prior FINDINGS: No evidence of acute fracture or dislocation.Joint spaces are preserved without significant degenerative/proliferative change. Soft tissue swelling about the right index finger. Soft tissue swelling overlying the dorsal MCP joints. IMPRESSION: 1. No acute fracture or dislocation 2. If there is persistent clinical concern for fracture, follow-up radiographs in 10-14 days is recommended. Electronically signed by: Tk Goel MD (07/27/2021 6:08 PM) [facility] Heart Score: C/O Chest Pain: No Risk Factors: Risk Factors: DM, Current or recent (<one month) smoker, HTN, HLP, family history of CAD, obesity. Risk Scores: Score 0 - 3: 2.5% MACE over next 6 weeks - Discharge Home Score 4 - 6: 20.3% MACE over next 6 weeks - Admit for Clinical Observation Score 7 - 10: 72.7% MACE over next 6 weeks - Early Invasive Strategies Course & Med Decision Making: Course & Med Decision Making Pertinent Labs and Imaging studies reviewed. (See chart for details) 1820 reviewed radiological results with patient did inform her there was no acute findings, but if patient continues to have pain in 10 to 14 days she is to follow-up with her primary care physician and they may want to delvin-ray her finger. Patient verbalized understanding of this and is agreeable to the plan of care. Dragon Disclaimer: Dragon Disclaimer: This electronic medical record was generated, in whole or in part, using a voice recognition dictation system. Departure Departure: Impression: Primary Impression: Finger contusion Qualified Codes: S60.021A - Contusion of right index finger without damage to nail, initial encounter Disposition: HOME / SELF CARE / HOMELESS Condition: STABLE Referrals: PCP,NO (PCP) Patient Instructions: Hand Contusion Additional Instructions: Ice 20 minutes on 3-4 times daily [id number] Tylenol and/or ibuprofen as needed for pain If you continue to have pain in the next 10 to 14 days follow-up with your primary care physician for repeat x-ray. TERE SEVILLA [employer] BUILD ENGINEER Jul 27, 2021 17:39
--- NOTE | 2021-07-27 18:10 | RAD ---
EXAM: 3 views right hand DATE: 07/27/2021 5:28 PM INDICATION: Reason: pain in 2nd finger after jamming it / Spl. Instructions: / History: . COMPARISON: No Prior FINDINGS: No evidence of acute fracture or dislocation.Joint spaces are preserved without significant degenerat alfonzo/proliferative change. Soft tissue swelling about the right index finger. Soft tissue swelling ove rlying the dorsal MCP joints. IMPRESSION: 1. No acute fracture or dislocation 2. If there is persistent clinical concern for fracture, follow-up radiographs in 10-14 days is yulissa mmended. Electronically signed by: Tk Goel MD (07/27/2021 6:08 PM) JANE
== END 2021-07-27 18:30 | disposition home or self-care (01) ==
LOC: ER 17:04
DX: S60.021A Contusion of right index finger without damage to nail, initial encounter (principal); R21 Rash and other nonspecific skin eruption; F41.9 Anxiety disorder, unspecified; E03.9 Hypothyroidism, unspecified; F17.210 Nicotine dependence, cigarettes, uncomplicated; Z88.2 Allergy status to sulfonamides; W23.0XXA Caught, crushed, jammed, or pinched between moving objects, initial encounter; Y93.72 Activity, wrestling; Y92.89 Other specified places as the place of occurrence of the external cause; Y99.8 Other external cause status
CPT/HCPCS: 73130; 99283